=== PATIENT | female | born 1985 | race Caucasian/White ===

== ENCOUNTER 2020-08-15 10:12 | Emergency (ER) | payer MEDICAID ==
[~2020-08-15] VITALS: Ht 167.6 cm; Wt 59.9 kg
--- NOTE | 2020-08-15 10:14 | NUR ---
ED Nurse Note: Patient brought in by ambulance from home due to left low & mid back pain, spasm after trying to run. Denies any numbness or tingling in BLE. Denies any fall or other injury. Patient states it was cold, needed to warm up body. Patient awake, alert, oriented x 4. Regular, unlabored breathing noted. Patient denies any hx and not taking any meds. Grasping the site. Provided warm blanket. Bed in lowest position.
--- NOTE | 2020-08-15 10:44 | NUR ---
ED Nurse Note: RN checked with NELDA if patient needs urine test and no urine prenancy test needed at this time. Patient states patient's period ened yesterday and no chance of being . RN explained the risk of med if patient is . Patient acknowledged and patient states she has no chance of being at this time. Addendum: 08/15/20 at 1101 by COY Patient declined test.
[2020-08-15] MEDS ORDERED: Ketorolac 30mg Inj IM ONE (10:45)
[2020-08-15] MEDS ORDERED: Methocarbamol 750mg tab ORAL ONE (10:45)
--- NOTE | 2020-08-15 10:50 | Emergency Room Report ---
History of Present Illness General Chief Complaint: Back Pain-No Injury Source: Patient Present Illness HPI 35-year-old female presents complaining of back pain. Brought in by EMS from home. Back pain started today while running on a running. Patient states she took a few steps when she felt sudden pain in her back. Throbbing, 10 out of 10, radiating to the front. Denies fevers or chills. Denies flank pain. Denies dysuria or hematuria. No other aggravating relieving factors. 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 COVID-19 Screening: Negative COVID-19 COVID-19 Testing Source: nasal Patient History Past Medical History: none Past Surgical History: none Pertinent Family History: none Social History: Denies: smoking, alcohol use, drug use Now: No Immunizations: UTD Reviewed Nursing Documentation: PMH: Agreed; PSxH: Agreed Review of Systems All Other Systems: negative except mentioned in HPI Physical Exam Vital Signs Date Time Temp Pulse Resp B/P (MAP) Pulse Ox O2 Delivery O2 Flow Rate FiO2 08/15/20 10:06 98.8 55 18 106/78 (87) 99 Room Air Sp02 EP Interpretation: reviewed, normal General Appearance: no apparent distress, alert, GCS 15, non-toxic Head: normocephalic, atraumatic Eyes: bilateral eye normal inspection, bilateral eye PERRL ENT: hearing grossly normal, normal pharynx, no angioedema, normal voice Neck: full range of motion, supple/symm/no masses Respiratory: chest non-tender, lungs clear, normal breath sounds, speaking full sentences Cardiovascular #1: regular rate, rhythm, no edema Cardiovascular #2: 2+ carotid (R), 2+ carotid (L), 2+ radial (R), 2+ radial (L), 2+ dorsalis pedis (R), 2+ dorsalis pedis (L) Gastrointestinal: normal bowel sounds, non tender, soft, non-distended, no guarding, no rebound Rectal: deferred Genitourinary: normal inspection, no CVA tenderness Musculoskeletal: back normal, normal range of motion, gait/station normal, tender - paraspinal tenderness L lower back Neurologic: alert, motor strength/tone normal, oriented x3, sensory intact, responsive, speech normal Psychiatric: judgement/insight normal, memory normal, mood/affect normal, no suicidal/homicidal ideation Reflexes: 3+ bicep (R), 3+ bicep (L), 3+ tricep (R), 3+ tricep (L), 3+ knee (R), 3+ knee (L) Skin: no rash Lymphatic: no adenopathy Medical Decision Making Diagnostic Impression: Primary Impression: Back pain Qualified Codes: M54.5 - Low back pain ER Course Hospital Course 35-year-old female presents with back pain status post running Differential diagnoses include: pyelonephritis, kidney stone, muscle strain, Lspine fracture Clinical course Patient placed on stretcher. After initial history exam reveals female in mild distress. There is no L-spine tenderness. No CVA tenderness. Pain in the paraspinal lumbar region. Straight leg raise negative. No focal deficits. 5 out of 5 strength in lower extremities I ordered Toradol, Robaxin, Lidoderm patch. On reassessment pain improved. Is able to walk without difficulty. I discussed findings with patient. Muscular. I do not believe imaging required. Patient agrees. Safe for discharge with close outpatient follow-up Diagnosis - back pain Stable and discharged to home with prescription for Motrin, Robaxin, Lidoderm. Followup with PMD. Return to ED if symptoms recur or worsen Last Vital Signs Date Time Temp Pulse Resp B/P (MAP) Pulse Ox O2 Delivery O2 Flow Rate FiO2 08/15/20 10:06 98.8 55 18 106/78 (87) 99 Room Air Status: improved Disposition: HOME, SELF-CARE Condition: Stable Scripts Lidocaine Patch* (Lidoderm Patch*) 1 Each Adh..patch 1 PATCH TOPIC DAILY, #7 PATCH 0 Refills Patch(es) may remain in place for up to 12 hours in any 24-hour period. Prov: Caio Pickard MD 08/15/20 Methocarbamol* (ROBAXIN-750*) 750 Mg Tablet 750 MG PO TID, #21 TAB 0 Refills Prov: Caio Pickard MD 08/15/20 Ibuprofen* (MOTRIN*) 400 Mg Tablet 400 MG ORAL Q8H, #30 TAB 0 Refills Prov: Caio Pickard MD 08/15/20 Referrals: [facility],REFERRING (PCP) Caio Pickard MD Aug 15, 2020 10:50
[2020-08-15] MEDS ORDERED: LIDODERM700 M1 TOPIC (11:25)
[2020-08-15] MEDS ORDERED: ROBAXIN-750750 MG PO (11:25)
[2020-08-15] MEDS ORDERED: IBUPROFEN400 MG ORAL (11:25)
--- NOTE | 2020-08-15 11:25 | NUR ---
ED Nurse Note: Patient reports she feels better and ambulated to the restroom with steady gait.
--- NOTE | 2020-08-15 11:30 | NUR ---
ED Nurse Note: Pt cleared by health care Provider for discharge. Patient able to ambulate without pain. DC instructions/prescription was given and explained to pt and verbalized understanding of teachings. All medical deviecs such as ID band removed. Pt is AAO x4, ambulatory and left with all personal belongings.
[2020-08-15 11:36] VITALS: BP 120/86
== END 2020-08-15 11:36 | disposition home or self-care (01) ==
LOC: EDBD 10:12 → EMR 10:31
DX: M54.5 Low back pain (principal)
CPT/HCPCS: 96372; J1885; Z7502; 99283

== ENCOUNTER 2020-09-17 11:51 | Emergency (ER) | payer MEDICAID ==
[~2020-09-17] VITALS: Ht 165.1 cm; Wt 74.4 kg
[~2020-09-17 11:51] MED LIST: IBUPROFEN400 MG ORAL; LIDODERM700 M1 TOPIC; ROBAXIN-750750 MG PO
[2020-09-17 11:55] VITALS: BP 126/50
--- NOTE | 2020-09-17 12:05 | NUR ---
ED Nurse Note: Patient from home and walked in due to coughing, fever with body aches and nasal congestion x 4-5 days. No fever in triage 98.4 F. Patient is AAO x4, ambulatory with non labored breathing.
[2020-09-17] MEDS ORDERED: Albuterol/Ipratropium 3ml neb HHN ONE (12:45)
--- NOTE | 2020-09-17 12:48 | NUR ---
ED Nurse Note: Rapid covid19 swab sent.
--- NOTE | 2020-09-17 13:10 | NUR ---
ED Nurse Note: Bigg from radiology with the patient for CXR.
--- NOTE | 2020-09-17 13:45 | NUR ---
ED Nurse Note: Deangelo at the bed side for breathing treatment.
[2020-09-17] MEDS ORDERED: ALBUTEROL SULF8.5 G2 IH (13:58)
[2020-09-17] MEDS ORDERED: ZITHROMAX250 MG ORAL (13:58)
[2020-09-17] MEDS ORDERED: ASPIRIN81 MG ORAL (13:58)
[2020-09-17 14:07] VITALS: BP 118/72
--- NOTE | 2020-09-17 14:07 | NUR ---
ER DISCHARGE NOTE: Patient is cleared to be discharged per ERMD, pt is aox4, on room air, with stable vital signs. pt was given dc and prescription instructions, pt was able to verbalize understanding, pt id band removed. pt is able to ambulate with steady gait. pt took all belongings.
--- NOTE | 2020-09-17 20:26 | Emergency Room Report ---
History of Present Illness General Chief Complaint: Flu Like Symptoms Source: Patient Present Illness HPI Patient is a 35 year old female who presents for increased left earache, nasal congestion and cough. Patient gradual onset of symptoms over the past 3 to 4 days, denies any chest pain. Reports having some intermittent difficulty with breathing. Patient states that she does not have any leg pain or swelling that is concerning. Generalized body aches. No vomiting or diarrhea. Decreased appetite. Nonproductive cough. Patient denies being a smoker. Denies prior medical history. No prior history of cardiac or lung disease. 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 COVID-19 Screening: Negative COVID-19 COVID-19 Testing Source: 1 month Patient History Past Medical History: see triage record Last Menstrual Period: 08-26 Reviewed Nursing Documentation: PMH: Agreed; PSxH: Agreed Nursing Documentation-PMH Past Medical History: No Stated History Review of Systems All Other Systems: negative except mentioned in HPI Physical Exam Vital Signs Date Time Temp Pulse Resp B/P (MAP) Pulse Ox O2 Delivery O2 Flow Rate FiO2 09/17/20 11:55 98.4 76 22 126/50 (75) 97 Room Air 09/17/20 16:41 21 Sp02 EP Interpretation: reviewed, normal General Appearance: normal inspection, well appearing, no apparent distress, alert, GCS 15 Head: atraumatic ENT: normal ENT inspection, hearing grossly normal, normal voice Neck: normal inspection, full range of motion, supple, no bony tend Respiratory: normal inspection, no respiratory distress, no retraction, wheezing Cardiovascular #1: regular rate, rhythm, no edema Gastrointestinal: normal inspection, normal bowel sounds, non tender, soft, no guarding, no hernia Genitourinary: no CVA tenderness Musculoskeletal: normal inspection, back normal, normal range of motion Neurologic: alert, responsive, speech normal, normal inspection Psychiatric: normal inspection, judgement/insight normal, mood/affect normal Skin: no rash Medical Decision Making Diagnostic Impression: Primary Impression: Coronavirus infection ER Course Patient presented for cough. Differential diagnosis include was not limited to coronavirus infection, bronchitis, asthma, pneumonia among others. Coronavirus testing was positive. CXR showed no acute infiltrate. She is stable for outpatient management. She was given return precautions. Patient was given prescriptions for several medications. Patient was seen during pandemic with rapidly changing treatment protocols. The patient is advised to follow up with primary care doctor in 1-2 days. Patient is advised to return if any worsening condition or if any changes in status that are concerning. This report is dictated with [employer] ophthalmic surgical assistant software which may occasional ly lead to discrepancies related to use of this software. Last Vital Signs Date Time Temp Pulse Resp B/P (MAP) Pulse Ox O2 Delivery O2 Flow Rate FiO2 09/17/20 16:41 72 18 100 Room Air 21 69 18 99 09/17/20 14:07 98.2 118/72 Status: improved Disposition: HOME, SELF-CARE Condition: Stable Scripts Azithromycin* (ZITHROMAX*) 250 Mg Tablet 250 MG ORAL DAILY, #6 TAB 0 Refills Take two tables once daily for 1 day, then one tablet once daily for 4 days. Prov: Luis Knox MD 09/17/20 Aspirin* (ASPIRIN*) 81 Mg Tab.chew 81 MG ORAL DAILY for Antiplatelet, #30 TAB Prov: Luis Knox MD 09/17/20 Albuterol Sulfate (Albuterol Sulfate Hfa) 8.5 Gm Hfa.aer.ad 8.5 GM IH EVERY 6 HOURS, #1 INH Prov: Luis Knox MD 09/17/20 Patient Instructions: Viral Respiratory Infection Additional Instructions: Your coronavirus test was positive. Follow up with your doctor for recheck. Return if worse. Luis Knox MD Sep 17, 2020 20:26
--- NOTE | 2020-09-18 07:47 | Diagnostic Imaging Report ---
EXAM: XR Chest, 1 View CLINICAL HISTORY: SOB TECHNIQUE: Frontal view of the chest. COMPARISON: No relevant prior studies available. FINDINGS: Lungs: Unremarkable. No consolidation. Pleural space: Unremarkable. No pneumothorax. Heart: Unremarkable. No cardiomegaly. Mediastinum: Unremarkable. Bones/joints: There is no acute abnormality. There is nonunion of a fracture of the left first rib.. IMPRESSION: No acute abnormality.
== END 2020-09-17 14:07 | disposition home or self-care (01) ==
LOC: EMR 12:39
DX: U07.1 COVID-19 (principal); H92.02 Otalgia, left ear
CPT/HCPCS: 71045; 94640; U0002; Z7502; 99283; J7620